=== PATIENT | female | born 1990 | race African-American/Black ===

== ENCOUNTER 2017-02-06 21:22 | Emergency (ER) | payer OTHER ==
[~2017-02-06] VITALS: Ht 162.6 cm; Wt 77.2 kg
[~2017-02-06 21:22] MED LIST: IBUP80TA PO; TYLE650T30 PO
[2017-02-06] MEDS ORDERED: diphenhydrAMINE INJ 50MG/ML VIAL (J1200) IV STA (23:04)
[2017-02-06] MEDS ORDERED: METOCLOPRAMIDE INJ 10MG/2ML VIAL (J2765) IV ONE (23:15)
[2017-02-06] MEDS ORDERED: KETOROLAC 30 MG/ML VIAL (J1885) IV ONE (23:15)
[2017-02-07 00:37] VITALS: BP 111/56
== END 2017-02-07 00:44 | disposition home or self-care (01) ==
LOC: M ED 21:22
DX: R51 Headache (principal)
CPT/HCPCS: 96374; 96375; 99283; J1200; J1885; J2765

== ENCOUNTER 2017-03-18 08:33 | Emergency (ER) | payer OTHER ==
[~2017-03-18] VITALS: Ht 162.6 cm; Wt 80.0 kg
[2017-03-18 08:40] VITALS: BP 133/68
[2017-03-18] MEDS ORDERED: ACETAMINOPHEN 325 MG TAB PO ONE (09:00)
--- NOTE | 2017-03-18 09:36 | REP ---
LEFT KNEE, FOUR VIEWS: HISTORY: Pain. There is no acute fracture or dislocation. The joint spaces are normal in appearance. IMPRESSION: There is no acute fracture or dislocation. Signed by Bernardino Bell MD 03/18/2017 09:38 A
== END 2017-03-18 09:49 | disposition home or self-care (01) ==
LOC: M ED 08:33
DX: M25.562 Pain in left knee (principal)

== ENCOUNTER 2017-10-28 18:44 | Outpatient (CLI) | payer OTHER ==
[2017-10-28 20:04] LABS: APPEARANCE, URINE CLEAR (CLEAR); BACTERIA, URINE AUTO NEGATIVE (NEGATIVE); BILIRUBIN, URINE AUTO NEGATIVE (NEGATIVE); BLOOD, URINE BLOOD NEGATIVE (NEGATIVE); COLOR, URINE YELLOW (YELLOW); GLUCOSE, URINE (UA) AUTO 1+ mg/dL (NEGATIVE); KETONE, URINE AUTO NEGATIVE (NEGATIVE); LEUKOCYTE ESTERASE, URINE AUTO NEGATIVE (NEGATIVE); MUCUS, URINE SMALL (NEGATIVE); NITRITE, URINE AUTO NEGATIVE (NEGATIVE); PROTEIN, URINE AUTO NEGATIVE (NEGATIVE); RBC, URINE AUTO 1 /HPF (0-3); SQUAMOUS EPITHELIAL CELL UR AU 2 /HPF (0-6); UROBILINOGEN, URINE AUTO 0.2 mg/dL (0.0-2.0); WBC, URINE AUTO 2 /HPF (0-3)
[2017-10-28 20:16] LABS: CREATININE,RANDOM URINE 68.1 MG/DL; TOTAL PROTEIN,RANDOM URINE 15.1 MG/DL (0.0-12.0)
[2017-10-28 20:18] LABS: HEMATOCRIT 40.4 % (36.0-47.0); HEMOGLOBIN 13.8 g/dl (12.0-15.5); MEAN CORPUSCULAR HEMOGLOBIN 31.9 pg (27.0-33.0); MEAN CORPUSCULAR HGB CONC 34.2 g/dl (32.0-36.5); MEAN CORPUSCULAR VOLUME 93.5 fl (80.0-96.0); PLATELET COUNT, AUTOMATED 200 10^3/uL (150-450); RED BLOOD COUNT 4.32 10^6/uL (4.00-5.40); RED CELL DISTRIBUTION WIDTH 13.5 % (11.5-14.5); WHITE BLOOD COUNT 10.6 10^3/uL (4.0-10.0)
[2017-10-28 20:43] LABS: ALBUMIN 2.7 GM/DL (3.2-5.2); ALBUMIN/GLOBULIN RATIO 0.63 (1.00-1.93); ALKALINE PHOSPHATASE 152 U/L (45-117); ALT/SGPT 13 U/L (12-78); ANION GAP 9 MEQ/L (8-16); AST/SGOT 12 U/L (7-37); BILIRUBIN,TOTAL 0.4 MG/DL (0.2-1.0); BLOOD UREA NITROGEN 5 MG/DL (7-18); CALCIUM LEVEL 8.9 MG/DL (8.5-10.1); CARBON DIOXIDE LEVEL 23 MEQ/L (21-32); CHLORIDE LEVEL 107 MEQ/L (98-107); CREATININE FOR GFR 0.74 MG/DL (0.55-1.30); GLOMERULAR FILTRATION RATE > 60.0 (>60); GLUCOSE, FASTING 102 MG/DL (70-100); POTASSIUM SERUM 4.4 MEQ/L (3.5-5.1); SODIUM LEVEL 139 MEQ/L (136-145)
== END 2017-10-28 21:30 | disposition home or self-care (01) ==
LOC: M LDO 18:44
DX: O26.853 Spotting complicating pregnancy, third trimester (principal); R10.9 Unspecified abdominal pain; O47.1 False labor at or after 37 completed weeks of gestation; Z3A.38 38 weeks gestation of pregnancy
CPT/HCPCS: 59025

== ENCOUNTER 2017-11-09 16:47 | Inpatient (IN) | payer OTHER ==
[2017-11-09] MEDS: OXYTOCIN INJ 10 UNITS/ML VIAL (J2590) IM (17:48)
[2017-11-09] MEDS: miSOPROStol 200 MCG TAB (S0191) PR (18:25)
[2017-11-09] MEDS ORDERED: RHOGAM 300 MCG (1500 IU) INJ (J2790) IM (19:15)
[2017-11-09] MEDS: LIDOCAINE 1% MDV 20ML VIAL INFIL (19:15)
[2017-11-09] MEDS ORDERED: DIBUCAINE 1% OINTMENT 30GM TOP (19:15)
[2017-11-09] MEDS ORDERED: MEASLES,MUMPS,RUBELLA VACCINE INJ (MMR-II) (90707) SC (19:15)
[2017-11-09] MEDS: IBUPROFEN 800 MG TAB PO (19:57)
[2017-11-09 20:51] LABS: HEMATOCRIT 40.6 % (36.0-47.0); HEMOGLOBIN 13.9 g/dl (12.0-15.5); MEAN CORPUSCULAR HEMOGLOBIN 31.7 pg (27.0-33.0); MEAN CORPUSCULAR HGB CONC 34.2 g/dl (32.0-36.5); MEAN CORPUSCULAR VOLUME 92.7 fl (80.0-96.0); PLATELET COUNT, AUTOMATED 195 10^3/uL (150-450); RED BLOOD COUNT 4.38 10^6/uL (4.00-5.40); RED CELL DISTRIBUTION WIDTH 13.5 % (11.5-14.5); WHITE BLOOD COUNT 19.4 10^3/uL (4.0-10.0)
[2017-11-09] MEDS: DOCUSATE SODIUM 100 MG CAP PO (22:17)
[2017-11-09] MEDS: ACETAMINOPHEN 500 MG TAB PO (22:17)
[2017-11-10] MEDS: IBUPROFEN 800 MG TAB PO (05:40)
[2017-11-10] MEDS: PRENATAL VITAMINS CHEWABLE TABLET PO (08:57)
[2017-11-10] MEDS: ACETAMINOPHEN 500 MG TAB PO (09:51)
[2017-11-11] MEDS: PRENATAL VITAMINS CHEWABLE TABLET PO (07:24)
== END 2017-11-11 11:35 | disposition home or self-care (01) | DRG 775 ==
LOC: M LDO 16:47 → M OBS 11-10 01:22 → M LDI 17:34 → M OBS 11-10 19:55
PROVIDERS: Obstetrics & Gynecology
PROC: 10E0XZZ Delivery of Products of Conception, External Approach (ICD-10-PCS; principal; 2017-11-09)
PROC: 0HQ9XZZ Repair Perineum Skin, External Approach (ICD-10-PCS; 2017-11-09)
DX: O62.3 Precipitate labor (principal); Z37.0 Single live birth; Z3A.40 40 weeks gestation of pregnancy; O70.0 First degree perineal laceration during delivery

== ENCOUNTER 2018-07-18 15:08 | Emergency (ER) | payer OTHER ==
[~2018-07-18] VITALS: Ht 162.6 cm; Wt 86.4 kg
[~2018-07-18 15:08] MED LIST changes: +COLA100C5 PO; +IBUP-1114 PO; +MAPA500T2 PO; +PRENTAB9 PO
--- NOTE | 2018-07-18 16:28 | REP ---
Clinical: Cough and shortness of breath . Comparison: None . Technique: PA and lateral. Findings: The mediastinum and cardiac silhouette are normal. The lung lucero are clear and without acute consolidation, effusion, or pneumothorax. The skeletal structures are intact and normal. Impression: 1. No acute cardiopulmonary process. Electronically Signed by Clemente Proctor MD 07/18/2018 04:19 P
[2018-07-18 16:37] VITALS: BP 132/80
[2018-07-18] MEDS ORDERED: TESS100C PO (16:45)
--- NOTE | 2018-07-19 10:19 | ECGEPIP ---
Stationary ECG Study [facility] - ED Test Date: 2018-07-18 Pat Name: GRACE TAYLOR Department: Room: - Gender: F [employer] Tender: ct : 1990 Requested By: ELINA Robertson PA-C Order Number: [id number] Reading MD: Verito Zuleta Measurements Intervals [place] Rate: 103 P: 57 MN: 170 QRS: 38 QRSD: 97 T: 48 QT: 311 QTc: 408 Interpretive Statements SINUS TACHYCARDIA INCOMPLETE RIGHT BUNDLE BRANCH BLOCK ABNORMAL RHYTHM ECG NO PRIOR FOR COMPARISON Electronically Signed On 07-19-2018 10:19:20 EST by Verito Zuleta
== END 2018-07-18 16:59 | disposition home or self-care (01) ==
LOC: M ED 15:08
DX: B34.9 Viral infection, unspecified (principal); R00.0 Tachycardia, unspecified; R05 Cough; Z20.828 Contact with and (suspected) exposure to other viral communicable diseases; R51 Headache; F17.200 Nicotine dependence, unspecified, uncomplicated

== ENCOUNTER 2019-02-11 09:44 | Outpatient (CLI) | payer OTHER ==
[~2019-02-11] VITALS: Ht 162.6 cm; Wt 88.7 kg
[~2019-02-11 09:44] MED LIST changes: +TESS100C PO
[2019-02-11 10:05] VITALS: BP 122/70
[2019-02-11] MEDS ORDERED: PRENTAB9 PO (10:11)
[2019-02-11 10:42] VITALS: BP 124/76
--- NOTE | 2019-02-11 11:08 | IPNPDOC ---
Text Note Date of Service The patient was seen on 02/11/19. NOTE 29 yo at 24+3 weeks gestation with di/di twins presented to L&D with the complaint of two days duration of loose stools/diarrhea and cramping. She reports since Monday she has had 3-4 loose stools daily and they have a strange smell. These loose stools are accompanied by cramping. She has no blood in her stools. She denies any changes in diet, recent travel, or sick contacts. She also denies any fevers/chills, SOB, n/v, dysuria, anorexia, or headaches. She also denies any vaginal bleeding or unusual vaginal discharge or leaking. She endorses excellent movement. Chaperoned by L&D RN Vitals - VSS, afebrile, normotensive, non tachycardic General - AAOX3, sitting up in bed, NAD, pleasant and conversant Abdomen - Gravid uterus, no fundal tenderness Extremities - No edema FHR tracing - Appropriate for gestational age for both fetuses. No contractions on toco. Bedside TVUS - Cervical length >3.7cm with no funneling or dynamic changes with valsalva Bedside TAUS (anatomy not assessed): Twin gestation. Baby A cephalic with +FCA measured at 150 bpm. +gross movement. SDP fluid >5cm. Baby B transverse with +FCA measured at 145 bpm. +gross movement. SDP fluid >4cm. Suspect viral syndrome. No evidence of acute bacterial infection and Ms. Richards is clinically well. Reassuring statuses. No evidence of labor. Discharged home with return precautions. Recommended aggressive PO hydration. Return to care for any urgent concerns. All questions answered. DO NICK Gibson Fishbone, I+O VS, Philippe, I+O Vital Signs Date Time Temp Pulse Resp B/P (MAP) Pulse Ox O2 Delivery O2 Flow Rate FiO2 02/11/19 10:05 97.5 97 18 122/70 (87) DAGMAR BONILLA DO Feb 11, 2019 11:08
== END 2019-02-11 11:01 | disposition home or self-care (01) ==
LOC: M LDO 09:44
PROVIDERS: ATTEND Obstetrics & Gynecology
DX: O26.892 Other specified pregnancy related conditions, second trimester (principal); R19.7 Diarrhea, unspecified; R10.9 Unspecified abdominal pain; O30.042 Twin pregnancy, dichorionic/diamniotic, second trimester; Z3A.24 24 weeks gestation of pregnancy
CPT/HCPCS: 59025; G0378; G0463

== ENCOUNTER → 2019-03-07 | Outpatient (CLI) | payer OTHER ==
[2019-03-07 21:11] LABS: ALBUMIN 2.8 GM/DL (3.2-5.2); ALT/SGPT 12 U/L (12-78); BILIRUBIN,TOTAL 0.3 MG/DL (0.2-1.0); BLOOD UREA NITROGEN 8 MG/DL (7-18); CARBON DIOXIDE LEVEL 24 MEQ/L (21-32); CHLORIDE LEVEL 106 MEQ/L (98-107); GLOMERULAR FILTRATION RATE > 60.0 (>60); GLUCOSE, FASTING 72 MG/DL (70-100); POTASSIUM SERUM 4.2 MEQ/L (3.5-5.1); SODIUM LEVEL 139 MEQ/L (136-145); TOTAL PROTEIN 6.7 GM/DL (6.4-8.2); URIC ACID 3.1 MG/DL (2.6-6.0)
[2019-03-10 00:10] LABS: CYTOMEGALOVIRUS IgM ANTIBODY <30.0 AU/mL (0.0-29.9); HSV IgM TYPES 1&2 1.17 Ratio (0.00-0.90); HSV TYPE II IgG SPECIFIC <0.91 index (0.00-0.90); RUBELLA IgG FOR TORCH EVAL 1.82 index (Immune >0.99); RUBELLA IgM FOR TORCH EVAL <20.0 AU/mL (0.0-19.9); TOXOPLASMA IgG ABY <3.0 IU/mL (0.0-7.1)
== END ==
LOC: M LAB 16:55
PROVIDERS: ATTEND Obstetrics & Gynecology
DX: Z11.9 Encounter for screening for infectious and parasitic diseases, unspecified (principal)

== ENCOUNTER → 2019-03-11 | Outpatient (REF) | payer OTHER | LOC: M LAB REF 03-10 18:22 | PROVIDERS: ATTEND Obstetrics & Gynecology | DX: Z34.80 Encounter for supervision of other normal pregnancy, unspecified trimester (principal); Z3A.00 Weeks of gestation of pregnancy not specified ==

== ENCOUNTER → 2019-03-11 | Outpatient (CLI) | payer OTHER ==
[2019-03-11 16:34] LABS: INR 1.05; PROTHROMBIN TIME 13.4 SECONDS (11.8-14.0)
[2019-03-11 16:35] LABS: PARTIAL THROMBOPLASTIN TIME 27.1 SECONDS (25.0-38.4)
[2019-03-11 16:38] LABS: D-DIMER QUANT 2212.01 ng/ml (<500)
== END ==
LOC: M LAB 08:00
PROVIDERS: ATTEND Obstetrics & Gynecology
DX: Z34.80 Encounter for supervision of other normal pregnancy, unspecified trimester (principal); Z3A.00 Weeks of gestation of pregnancy not specified

== ENCOUNTER 2019-03-21 08:31 | Outpatient (CLI) | payer OTHER ==
[~2019-03-21] VITALS: Ht 162.6 cm; Wt 88.9 kg
[2019-03-21 09:02] VITALS: BP 115/67
[2019-03-21] MEDS ORDERED: MAG Sulf (OBGYN) 20GM/500ML 20,000 MG in IV 1 EA IV SCH (09:48)
[2019-03-21] MEDS ORDERED: MAGNESIUM SULFATE 4% INJ 20GM/500ML (40MG/ML) (J3475) As Ordered ONE (09:52)
[2019-03-21] MEDS ORDERED: MAGNESIUM *L&D* 4 GM/100 ML BAG (40MG/ML) (J3475) As Ordered ONE (09:52)
[2019-03-21] MEDS ORDERED: MAG Sulf (L&D) 4 GM/100 ML 4 GM in IV 1 EA IV ONE (10:00)
[2019-03-21] MEDS ORDERED: TERBUTALINE SULFATE 1 MG/ML VIAL (J3105) SC SCH (10:00)
[2019-03-21] MEDS ORDERED: BETAMETHASONE SOLUSPAN 6MG/ML INJ 5ML (J0702) As Ordered ONE (10:01)
[2019-03-21] MEDS ORDERED: TERBUTALINE SULFATE 1 MG/ML VIAL (J3105) As Ordered ONE (10:03)
[2019-03-21 10:10] VITALS: BP 139/78
[2019-03-21] MEDS ORDERED: LR 1,000 ML IV SCH (10:15)
[2019-03-21] MEDS ORDERED: LR 1,000 ML IV ONE (10:15)
[2019-03-21 10:27] VITALS: BP 126/58
--- NOTE | 2019-03-21 10:31 | IPNPDOC ---
Text Note Date of Service The patient was seen on 03/21/19. NOTE Patient is a 29 yo @ 29+6WKS gestation with di/di twins (twin A demise) presents to triage with vaginal bleeding and contractions. Bleeding started this AM when patien woke up. denies gush of fluids. +fm of twin B. denies sweats/chills/n/v/WANG. Vitals: reviewed, normotensive, afebrile NAD, laying in bed abd: gravid, soft, nt le: no edema/erythema/tenderness pelvic exam: speculum: scant blood, no active bleeding, cervix visually dilated, difficult to assess visually. digital exam: palpable part at cervical os, 2-3cm dilated. TAUS/tvus: baby B transverse, baby A with footling breech. fht: 130/mod zac/no accel/no decel toco: ctx q 3mins a/p patient is a 29 yo @ 29+6wks with labor, patient stable to transfer to higher level of care for level III NICU. Discussed with Dr. Bernardino Garcia at perinatology at [place] and accepted patient for transfer. start IV betamethasone 12mg x 1 Mag 4gm bolus with 1gm /hr for neuro protection terb 0.25mg sc x 1 for tocolytic indomethacin 50mg po x 1 for tocolytic Patient counseled on risks of transportation and transfer with risk of delivery in route and not having immediate medical care for patient and baby. discussed benefits of having level III NICU available for baby B when delivered. option of not transferring given to patient. patient expresses understanding and desires to be transferred. consent form signed. transfer to [place]. DO NICK Wagner Fishbone, I+O VSPetrona, I+O Vital Signs Date Time Temp Pulse Resp B/P (MAP) Pulse Ox O2 Delivery O2 Flow Rate FiO2 03/21/19 09:02 98.6 96 18 115/67 (83) JERRY WAGNER DO Mar 21, 2019 10:31
[2019-03-21 10:37] VITALS: BP 128/71
[2019-03-21 10:42] LABS: HEMATOCRIT 41.6 % (36.0-47.0); HEMOGLOBIN 13.9 g/dl (12.0-15.5); MEAN CORPUSCULAR HEMOGLOBIN 32.9 pg (27.0-33.0); MEAN CORPUSCULAR HGB CONC 33.4 g/dl (32.0-36.5); MEAN CORPUSCULAR VOLUME 98.6 fl (80.0-96.0); PLATELET COUNT, AUTOMATED 159 10^3/uL (150-450); RED BLOOD COUNT 4.22 10^6/uL (4.00-5.40); WHITE BLOOD COUNT 11.2 10^3/uL (4.0-10.0)
[2019-03-21 10:52] VITALS: BP 134/72
[2019-03-21] MEDS ORDERED: BETAMETHASONE SOLUSPAN 6MG/ML INJ 5ML (J0702) IM SCH (11:00)
[2019-03-21] MEDS ORDERED: INDOMETHACIN 25 MG CAP PO ONE (12:00)
== END 2019-03-21 11:05 | disposition other institution (70) ==
LOC: M LDO 08:31
PROVIDERS: ATTEND Obstetrics & Gynecology
DX: O60.03 Preterm labor without delivery, third trimester (principal); O26.853 Spotting complicating pregnancy, third trimester; O30.043 Twin pregnancy, dichorionic/diamniotic, third trimester; O31.23X1 Continuing pregnancy after intrauterine death of one fetus or more, third trimester, fetus 1; Z3A.29 29 weeks gestation of pregnancy
CPT/HCPCS: 76815; 85027; 86780; 86850; 96365; 96372; G0378; G0463; J0702; J3105; J3475

== ENCOUNTER → 2019-03-21 | Outpatient (CLI) | payer OTHER | LOC: M RAD 08:27 | PROVIDERS: ATTEND Specialist | DX: O30.042 Twin pregnancy, dichorionic/diamniotic, second trimester (principal); Z3A.27 27 weeks gestation of pregnancy ==

== ENCOUNTER → 2023-08-22 | Outpatient (REF) | payer OTHER | LOC: M LAB REF 16:23 | PROVIDERS: ATTEND Nurse Practitioner Family | DX: R30.0 Dysuria (principal); B95.2 Enterococcus as the cause of diseases classified elsewhere ==

== ENCOUNTER 2023-11-15 10:14 | Emergency (ER) | payer OTHER ==
[~2023-11-15] VITALS: Ht 162.6 cm; Wt 80.0 kg
[2023-11-15] MEDS: METOCLOPRAMIDE INJ 10MG/2ML VIAL IV ONE (11:25)
[2023-11-15] MEDS: NS 1,000 ML IV ONE (11:25)
[2023-11-15] MEDS: ONDANSETRON 4MG ORAL DISINTEGRATING TAB PO ONE (12:24)
[2023-11-15 13:02] LABS: BASO % 0.1 % (0.0-1.0); EOS % 0.2 % (0.0-3.0); HEMATOCRIT 40.4 % (36.0-47.0); LYMPH # 1.1 10^3/uL (1.5-5.0); LYMPH % 13.4 % (24.0-44.0); MEAN CORPUSCULAR HEMOGLOBIN 31.9 pg (27.0-33.0); MEAN CORPUSCULAR HGB CONC 34.7 g/dl (32.0-36.5); MONO # 0.5 10^3/uL (0.0-0.8); MONO % 5.8 % (2.0-8.0); NEUTROPHILS # 6.5 10^3/uL (1.5-8.5); NEUTROPHILS % 80.1 % (36.0-66.0); PLATELET COUNT, AUTOMATED 174 10^3/uL (150-450); RED BLOOD COUNT 4.39 10^6/uL (4.00-5.40); WHITE BLOOD COUNT 8.1 10^3/uL (4.0-10.0)
[2023-11-15 13:14] LABS: ALBUMIN 3.8 G/DL (3.2-5.2); ALKALINE PHOSPHATASE 68 U/L (46-116); ALT/SGPT 25 U/L (7.0-40); AST/SGOT 44 U/L (<34); BILIRUBIN,DIRECT 0.2 MG/DL (<0.4); BILIRUBIN,TOTAL 0.8 MG/DL (0.3-1.2); BLOOD UREA NITROGEN < 5 MG/DL (9-23); CALCIUM LEVEL 9.5 MG/DL (8.5-10.1); CARBON DIOXIDE LEVEL 24 MMOL/L (20-31); CHLORIDE LEVEL 102 MMOL/L (98-107); CREATININE FOR GFR 0.66 MG/DL (0.55-1.30); GLOMERULAR FILTRATION RATE > 60.0 (>60); GLUCOSE, FASTING 96 MG/DL (60-100); HCG, SERUM QUANTITATIVE 167558.7 MIU/ML (<4.2); LIPASE 36 U/L (12-53); POTASSIUM SERUM 5.9 MMOL/L (3.5-5.1); SODIUM LEVEL 134 MMOL/L (136-145); TOTAL PROTEIN 7.1 G/DL (5.7-8.2)
[2023-11-15] MEDS ORDERED: ONDA4TAB6 PO (13:59)
[2023-11-15 14:11] VITALS: BP 133/83; TEMP 97; O2SAT 97
== END 2023-11-15 14:15 | disposition home or self-care (01) ==
LOC: M ED 10:14
DX: O21.9 Vomiting of pregnancy, unspecified (principal); Z3A.08 8 weeks gestation of pregnancy; Z87.59 Personal history of other complications of pregnancy, childbirth and the puerperium

== ENCOUNTER → 2024-02-01 | Outpatient (CLI) | payer OTHER ==
[~2024-02-01] MED LIST changes: +ONDA-282 PO
[2024-02-01 17:43] LABS: HEMATOCRIT 37.1 % (36.0-47.0); HEMOGLOBIN 12.6 g/dl (12.0-15.5); MEAN CORPUSCULAR HEMOGLOBIN 31.9 pg (27.0-33.0); MEAN CORPUSCULAR VOLUME 93.9 fl (80.0-96.0); PLATELET COUNT, AUTOMATED 218 10^3/uL (150-450); RED BLOOD COUNT 3.95 10^6/uL (4.00-5.40); WHITE BLOOD COUNT 11.3 10^3/uL (4.0-10.0)
[2024-02-01 18:39] LABS: HIV 1&2 SCREEN NEGATIVE (NEGATIVE)
[2024-02-01 18:46] LABS: HEPATITIS C VIRUS ABY INDEX < 0.02 INDEX (<0.8)
[2024-02-01 19:42] LABS: GC DNA AMPLIFICATION NEGATIVE (NEGATIVE)
== END ==
LOC: M PLALAB 15:08
PROVIDERS: ATTEND Nurse Practitioner Women's Health
DX: Z34.82 Encounter for supervision of other normal pregnancy, second trimester (principal)

== ENCOUNTER → 2024-02-16 | Outpatient (CLI) | payer OTHER | LOC: M WHC 09:47 | PROVIDERS: ATTEND Nurse Practitioner Women's Health | DX: Z34.82 Encounter for supervision of other normal pregnancy, second trimester (principal) ==

== ENCOUNTER → 2024-03-11 | Outpatient (CLI) | payer OTHER | LOC: M WHC 10:57 | PROVIDERS: ATTEND Obstetrics & Gynecology | DX: O09.522 Supervision of elderly multigravida, second trimester (principal); Z3A.25 25 weeks gestation of pregnancy ==

== ENCOUNTER → 2024-03-11 | Outpatient (CLI) | payer OTHER ==
[2024-03-11 13:31] LABS: MEAN CORPUSCULAR HGB CONC 33.3 g/dl (32.0-36.5); MEAN CORPUSCULAR VOLUME 98.9 fl (80.0-96.0); PLATELET COUNT, AUTOMATED 209 10^3/uL (150-450); RED BLOOD COUNT 3.64 10^6/uL (4.00-5.40); WHITE BLOOD COUNT 12.1 10^3/uL (4.0-10.0)
[2024-03-11 15:26] LABS: HIV 1&2 SCREEN NEGATIVE (NEGATIVE)
[2024-03-11 15:34] LABS: HEPATITIS C VIRUS ABY INDEX < 0.02 INDEX (<0.8)
== END ==
LOC: M PLALAB 11:30
PROVIDERS: ATTEND Obstetrics & Gynecology
DX: Z36.89 Encounter for other specified antenatal screening (principal); Z3A.24 24 weeks gestation of pregnancy

== ENCOUNTER → 2024-04-02 | Outpatient (REF) | payer OTHER ==
[2024-04-02 15:28] LABS: GC DNA AMPLIFICATION NEGATIVE (NEGATIVE)
== END ==
LOC: M PLALAB 10:43
PROVIDERS: ATTEND Advanced Practice Midwife
DX: O09.523 Supervision of elderly multigravida, third trimester (principal)

== ENCOUNTER → 2024-04-04 | Outpatient (CLI) | payer OTHER | LOC: M PLALAB 07:58 | PROVIDERS: ATTEND Obstetrics & Gynecology | DX: Z34.92 Encounter for supervision of normal pregnancy, unspecified, second trimester (principal) ==

== ENCOUNTER → 2024-04-12 | Outpatient (CLI) | payer OTHER | LOC: M LAB 07:42 | PROVIDERS: ATTEND Obstetrics & Gynecology | DX: O99.810 Abnormal glucose complicating pregnancy (principal); Z3A.30 30 weeks gestation of pregnancy ==

== ENCOUNTER → 2024-04-15 | Outpatient (REF) | payer OTHER | LOC: M PLALAB 14:16 | PROVIDERS: ATTEND Obstetrics & Gynecology | DX: R73.09 Other abnormal glucose (principal) ==

== ENCOUNTER → 2024-05-27 | Outpatient (CLI) | payer OTHER | LOC: M WHC 12:19 | PROVIDERS: ATTEND Nurse Practitioner Family | DX: O09.523 Supervision of elderly multigravida, third trimester (principal); Z3A.36 36 weeks gestation of pregnancy ==

== ENCOUNTER → 2024-05-27 | Outpatient (REF) | payer OTHER | LOC: M SFHCWAGY 14:52 | PROVIDERS: ATTEND Nurse Practitioner Family | DX: Z34.83 Encounter for supervision of other normal pregnancy, third trimester (principal) ==

== ENCOUNTER 2024-06-24 13:15 | Outpatient (CLI) | payer OTHER ==
[~2024-06-24] VITALS: Ht 162.6 cm; Wt 93.4 kg
[2024-06-24 13:32] VITALS: BP 134/75
[2024-06-24 13:48] VITALS: BP 117/63
[2024-06-24 14:57] LABS: HEMATOCRIT 38.4 % (36.0-47.0); HEMOGLOBIN 12.9 g/dl (12.0-15.5); MEAN CORPUSCULAR HEMOGLOBIN 32.7 pg (27.0-33.0); MEAN CORPUSCULAR HGB CONC 33.6 g/dl (32.0-36.5); MEAN CORPUSCULAR VOLUME 97.5 fl (80.0-96.0); PLATELET COUNT, AUTOMATED 170 10^3/uL (150-450); RED BLOOD COUNT 3.94 10^6/uL (4.00-5.40); WHITE BLOOD COUNT 10.7 10^3/uL (4.0-10.0)
[2024-06-24 15:01] LABS: TOTAL PROTEIN,RANDOM URINE 20.8 MG/DL (0.0-14.0)
[2024-06-24 15:05] LABS: CREATININE,RANDOM URINE 96.5 MG/DL
[2024-06-24 15:18] LABS: LDH LACTATE DEHYDROGENASE 161 U/L (120-246)
[2024-06-24 15:19] LABS: ALT/SGPT 11 U/L (7.0-40); AST/SGOT 12 U/L (<34); BILIRUBIN,TOTAL 0.4 MG/DL (0.3-1.2); CREATININE FOR GFR 0.72 MG/DL (0.55-1.30); GLOMERULAR FILTRATION RATE > 60.0 (>60)
[2024-06-24 15:22] LABS: URIC ACID 3.9 MG/DL (3.1-7.8)
== END 2024-06-24 15:20 | disposition home or self-care (01) ==
LOC: M LDO 13:15
PROVIDERS: ATTEND Advanced Practice Midwife
DX: O16.3 Unspecified maternal hypertension, third trimester (principal); O09.523 Supervision of elderly multigravida, third trimester; O34.219 Maternal care for unspecified type scar from previous cesarean delivery; Z3A.40 40 weeks gestation of pregnancy
CPT/HCPCS: 36415; 59025; 82247; 82570; 83615; 84156; 84450; 84460; 84550; 85027; G0463

== ENCOUNTER → 2025-04-07 | Outpatient (CLI) | payer OTHER | LOC: M RAD 15:11 | PROVIDERS: ATTEND Nurse Practitioner Family | DX: G43.E19 Chronic migraine with aura, intractable, without status migrainosus (principal) ==